=== PATIENT | female | born 2000 | race Caucasian/White ===

== ENCOUNTER 2023-07-21 16:50 | Emergency (ER) | payer OTHER ==
[2023-07-21] MEDS ORDERED: Ketorolac Tromethamine 30 MG/ML VIAL ONE (19:41)
[2023-07-21] MEDS ORDERED: Orphenadrine Citrate 60 MG/2 ML VIAL ONE (19:41)
== END 2023-07-21 20:03 | disposition home or self-care (01) ==
LOC: ERS 16:50
DX: S13.4XXA Sprain of ligaments of cervical spine, initial encounter (principal); R51.9 Headache, unspecified; V89.2XXA Person injured in unspecified motor-vehicle accident, traffic, initial encounter
CPT/HCPCS: 70450; 72125; 96372; J1885; J2360